=== PATIENT | male | born 1970 | race Caucasian/White ===

== ENCOUNTER 2020-11-26 07:13 | Day surgery (SDC) | payer BC ==
[2020-11-24 12:12] VITALS: BMI 24.4
[2020-11-26] MEDS ORDERED: Acetaminophen 500 MG TAB ONE (07:27)
[2020-11-26] MEDS ORDERED: Ketorolac Tromethamine 30 MG/ML VIAL ONE (07:40)
[2020-11-26] MEDS ORDERED: XYLOCAINE 2%-EPI 1:100,000 20 ML VIAL ONE (08:05)
[2020-11-26] MEDS ORDERED: Bupivacaine 0.25% HCL 30 ML VIAL ONE (08:05)
[2020-11-26] MEDS ORDERED: Fentanyl 100 MCG/2 ML VIAL ONE ×2 (08:41→11:13)
[2020-11-26] MEDS ORDERED: Midazolam HCl 2 mg/2 ml Vial ONE (08:41)
[2020-11-26] MEDS ORDERED: Lidocaine 1% PF 5 ML VIAL ONE (08:52)
[2020-11-26] MEDS ORDERED: Ondansetron PF 4 MG/2 ML Vial ONE (08:52)
[2020-11-26] MEDS ORDERED: PHENYLEPHRINE-NS 100 MCG/ML 10 ML SYRINGE ONE (08:52)
[2020-11-26] MEDS ORDERED: Rocuronium Bromide 10 MG/ML (10ML VIAL) ONE (08:52)
[2020-11-26] MEDS ORDERED: PROPOFOL 200 MG/20 ML VIAL ONE (08:52)
[2020-11-26] MEDS ORDERED: Glycopyrrolate 0.2 MG/ML 5 ML SYRINGE ONE (08:52)
[2020-11-26] MEDS ORDERED: Dexamethasone 20 MG/5 ML VIAL ONE (08:52)
== END 2020-11-26 12:50 | disposition home or self-care (01) ==
LOC: SDC 07:13
PROVIDERS: ATTEND Specialist
PROC: 8E0W4CZ Robotic Assisted Procedure of Trunk Region, Percutaneous Endoscopic Approach (ICD-10-PCS; principal; 2020-11-26)
PROC: 0YU54JZ Supplement Right Inguinal Region with Synthetic Substitute, Percutaneous Endoscopic Approach (ICD-10-PCS; principal; 2020-11-26)
DX: K40.90 Unilateral inguinal hernia, without obstruction or gangrene, not specified as recurrent (principal); D17.6 Benign lipomatous neoplasm of spermatic cord; K66.0 Peritoneal adhesions (postprocedural) (postinfection); F17.290 Nicotine dependence, other tobacco product, uncomplicated; Z21 Asymptomatic human immunodeficiency virus [HIV] infection status; Z79.899 Other long term (current) drug therapy
CPT/HCPCS: C1781; J0690; J1100; J1885; J2250; J2405; J2704; J3010; S0020